=== PATIENT | male | born 1980 | race Caucasian/White ===

== ENCOUNTER 2023-10-31 13:48 | Outpatient (REF) | payer MEDICAID, SELFPAY ==
--- NOTE | ~2023-10-31 | XR_ITS ---
EXAMINATION: XR FOOT, LEFT CLINICAL INFORMATION: Pain and swelling after injury 5 days ago COMPARISON: None available. TECHNIQUE: AP, lateral, and oblique views of the left foot. FINDINGS: There is superior lateral dislocation of the first distal phalanx relative to the proximal phalanx with soft tissue swelling No fracture. XR/XR foot LT min 3V IMPRESSION: Dislocated great toe.
== END 2023-10-31 13:49 | disposition home or self-care (01) ==
LOC: HO.HHCX 13:48
PROVIDERS: Visit Provider Internal Medicine Geriatric Medicine
DX: R22.42 Localized swelling, mass and lump, left lower limb (principal)
CPT/HCPCS: 73630